=== PATIENT | male | born 1955 | race Caucasian/White ===

== ENCOUNTER 2023-03-27 11:54 | Emergency (ER) | payer SELFPAY ==
[2023-03-27 12:10] VITALS: BP 149/70; PULSE 98; RESP 14; TEMP 36.7; O2SAT 97; BMI 33.0
--- NOTE | 2023-03-27 12:30 | ED.SKABFB ---
HPI - Skin/Abscess/Foreign Bdy General Chief complaint: Skin/Abscess/Foreign Body Stated complaint: bitten by dear ticks Time Seen by Provider: 03/27/23 12:07 Source: patient Mode of arrival: Ambulatory Limitations: no limitations History of Present Illness HPI narrative: Patient is a 68-year-old male who is here for evaluation of a rash that started on his lower back and then move to his upper back in his now on his arms and his upper chest. He states that he did see a tick on him a couple days ago however the rash has been there for the past several days. No fevers. No recent travel. No recent antibiotics. It is forming blisters/pustules. Related Data Previous Rx's Medication Instructions Recorded doxycycline hyclate 100 mg tablet 100 mg PO BID 10 days #20 tabs 03/27/23 Review of Systems Constitutional Constitutional: Reports system reviewed and no additional complaints, except as documented Integumentary/Breasts Skin/Breast: Reports system reviewed and no additional complaints, except as documented Patient History Social History Smoking Status: Former smoker Smoking Status: Former smoker alcohol intake frequency: 0-2 drinks per day Substance Use Type: does not use Exam Initial Vital Signs Initial Vital Signs: Vital Signs Temperature 98.0 F 03/27/23 12:10 Pulse Rate 98 H 03/27/23 12:10 Respiratory Rate 14 03/27/23 12:10 Blood Pressure 149/70 H 03/27/23 12:10 Pulse Oximetry 97 03/27/23 12:10 Oxygen Delivery Method Room Air 03/27/23 12:10 HENNE Head: normal to inspection and normocephalic Skin Other: Patient does have an extensive rash that is in patches located on his lower back and upper back and then also in his arms and chest. Some excoriation. No active bleeding. Very small vesicles noted. No pustules. Course Orders Ordered: ED Orders 03/27/23 12:29 Wound Culture and Gram Stain Stat Wound Culture and Gram Stain Stat Vital Signs Vital signs: Vital Signs - 8 hr 03/27/23 12:10 Temperature 98.0 F Pulse Rate 98 H Respiratory Rate 14 Blood Pressure 149/70 H Pulse Oximetry 97 Oxygen Delivery Method Room Air MDM - Skin/Abscess/Foreign Bdy MDM Narrative Medical decision making narrative: Patient does have a fairly extensive rash on his upper body. It is not consistent with [place] mountain spotted fever or Lyme disease. No tics noted on his skin today. Cultures were obtained. Will start him on doxycycline based on the extent of the rash. He was informed that he needed to contact his primary doctor for follow-up. He expressed understanding and agreement. Discharge Plan Departure Patient Disposition: Home Clinical Impression: Rash Activity Restrictions/Additional Instructions: I recommend that you take the antibiotics as directed. We did culture to areas on your body today. We will contact you if we need to change antibiotics based on this. You are going to need follow-up with your primary doctor and potentially [employer] consultant. Return to the emergency department for new symptoms. Prescriptions: New doxycycline hyclate 100 mg tablet 100 mg PO BID 10 Days Qty: 20 0RF Referrals: Miscellaneous,MD Jabier [Primary Care Provider] - Stand Alone Forms: Patient Portal/API
[2023-03-27 12:43] VITALS: BP 134/67; PULSE 86; RESP 14; O2SAT 97
== END 2023-03-27 12:45 | disposition home or self-care (01) ==
PROVIDERS: Emergency Provider Emergency Medicine
DX: R21 Rash and other nonspecific skin eruption (principal)
CPT/HCPCS: 87070; 87075; 87077; 87147; 87186; 87205; 99281; 99282

== ENCOUNTER 2023-04-08 11:15 | Emergency (ER) | payer SELFPAY ==
[2023-04-08 12:18] VITALS: BP 148/74; PULSE 79; RESP 20; TEMP 36.6; O2SAT 98; BMI 33.0
--- NOTE | 2023-04-08 13:23 | PC.NURSE ---
pt has a rash over body. scratch zambrano. said he put a vacuum to it and sucked them out.
--- NOTE | 2023-04-08 15:06 | ED.PSYCH ---
HPI - Psych <Jose De Jesus Chaney PA-C - Last Filed: 04/08/23 15:14> General Chief Complaint: Psychiatric Symptoms Stated Complaint: deer tick infestation Time Seen by Provider: 04/08/23 13:00 Source: patient Mode of arrival: Ambulatory History of Present Illness HPI Narrative: 68-year-old male presents to the ED for a rash on his torso and arms. Patient was seen in the ED for the same complaint on 03/27/2023, culture obtained and prescribed doxycycline. Culture is positive for Streptococcus G. patient states that his rash improved somewhat when he started taking the antibiotics, however has not completely resolved. Patient also believes that he has some parasites under the skin that are bothering there way across his body and causing the rash. Patient brings a small tub of what appears to be skin and debris in some water and insists that they are parasites and tics. Patient states that he has obtained these organisms by using a small vac to vacuum it out of his skin. Patient is requesting a new antibiotic and an anti parasiteic medication. Patient denies fever, chills, nausea, vomiting. Patient denies any drug use. Unclear if there is a mental health diagnosis. Patient does not have a PCP. Related Data Previous Rx's Medication Instructions Recorded cephalexin 500 mg tablet 500 mg PO QID 7 days #28 tabs 04/08/23 permethrin 5 % topical cream 1 applic topical Q14D 2 doses #60 04/08/23 grams Allergies Allergy/AdvReac Type Severity Reaction Status Date / Time No Known Drug Allergies Allergy Verified 04/08/23 12:27 Review of Systems <Jose De Jesus Chaney PA-C - Last Filed: 04/08/23 15:14> Constitutional Constitutional: Denies chills, Denies fatigue, Denies fever(s), Denies frequent falls, Denies lethargy and Denies weakness Eyes Eyes: Denies change in vision, Denies eye discharge, Denies irritation and Denies loss of vision ENT Ears, Nose, Mouth, and Throat: Denies change in voice, Denies dizziness, Denies neck pain, Denies sore throat and Denies throat swelling Cardiovascular Cardiovascular: Denies chest pain, Denies irregular heart rhythm, Denies lightheadedness, Denies palpitations, Denies dyspnea, Denies dyspnea on exertion and Denies orthopnea Respiratory Respiratory: Denies cough, Denies dyspnea, Denies dyspnea on exertion and Denies wheezing Gastrointestinal Gastrointestinal: Denies abdominal pain, Denies change in bowel habits, Denies diarrhea, Denies nausea and Denies vomiting Musculoskeletal Musculoskeletal: Denies neck pain and Denies numbness Integumentary/Breasts Skin/Breast: Denies pruritus, Denies erythema, Reports rash and Denies wounds Neurologic Neurologic: Denies behavioral changes, Denies confusion, Denies dizziness, Denies frequent falls, Denies loss of vision, Denies numbness and Denies weakness Psychiatric Psychiatric: Denies anxiety, Denies behavioral changes, Denies confusion, Denies depression, Denies homicidal ideation and Denies suicidal ideation Endocrine Endocrine: Denies fatigue, Denies flushing and Denies palpitations Hematologic/Lymphatic Hematologic/Lymphatic: Denies easy bruising Allergic/Immunologic Allergic/Immunologic: Denies urticaria, Denies throat swelling and Denies wheezing Patient History <Jose De Jesus Chaney PA-C - Last Filed: 04/08/23 15:14> Social History Smoking Status: Former smoker Smoking Status: Former smoker alcohol intake frequency: 0-2 drinks per day Substance Use Type: does not use Exam <Jose De Jesus Chaney PA-C - Last Filed: 04/08/23 15:14> Narrative Exam Narrative: Const General:?cooperative, healthy appearing and comfortable [facility] Head:?normal to inspection Ears:?hearing grossly normal bilaterally Nose:?external nose normal Face and sinus:?normal facial exam and sinuses nontender Mouth:?oral mucosae normal Throat:?posterior oropharynx normal Eyes General:?appearance normal, both eyes and all related structures Neck Neck:?normal visual inspection and no lymphadenopathy noted Resp Effort & Inspection:?normal respiratory effort Auscultation:?clear to auscultation bilaterally Cardio Rate:?regular rate Rhythm:?regular rhythm Integumentary Diffuse, erythematous, dry, excoriated rash with scabbing on torso and arms. Neuro General:?patient alert, patient awake and patient oriented x3 Initial Vital Signs Initial Vital Signs: Vital Signs Temperature 97.9 F 04/08/23 12:18 Pulse Rate 79 04/08/23 12:18 Respiratory Rate 20 04/08/23 12:18 Blood Pressure 148/74 H 04/08/23 12:18 Pulse Oximetry 98 02/13/24 12:18 Oxygen Delivery Method Room Air 04/08/23 12:18 <Leodan Lee MD - Last Filed: 04/08/23 19:32> Initial Vital Signs Initial Vital Signs: Vital Signs Temperature 97.9 F 04/08/23 12:18 Pulse Rate 79 04/08/23 12:18 Respiratory Rate 20 04/08/23 12:18 Blood Pressure 148/74 H 04/08/23 12:18 Pulse Oximetry 98 04/08/23 12:18 Oxygen Delivery Method Room Air 04/08/23 12:18 Course <Jose De Jesus Chaney PA-C - Last Filed: 04/08/23 15:14> Vital Signs Vital signs: Vital Signs - 8 hr 04/08/23 12:18 Temperature 97.9 F Pulse Rate 79 Respiratory Rate 20 Blood Pressure 148/74 H Pulse Oximetry 98 Oxygen Delivery Method Room Air <Leodan Lee MD - Last Filed: 04/08/23 19:32> Vital Signs Vital signs: Vital Signs - 8 hr 04/08/23 12:18 Temperature 97.9 F Pulse Rate 79 Respiratory Rate 20 Blood Pressure 148/74 H Pulse Oximetry 98 Oxygen Delivery Method Room Air MDM - Psych <Jose De Jesus Chaney PA-C - Last Filed: 04/08/23 15:14> MDM Narrative Medical decision making narrative: 68-year-old male presents to the ED for a rash on his torso and arms. Patient's rash still appears to be erythematous, dry and excoriated. Will treat with cephalexin. Will also trial permethrin. Patient agrees not to use the vacuum. ED return precautions discussed with patient. Patient verbalized understanding. Medical records reviewed: Yes Discharge Plan Departure Patient Disposition: Home Clinical Impression: Rash Instructions: DI for Rash Activity Restrictions/Additional Instructions: You were evaluated in the ED today for a skin rash. Your culture results from your last ED visit shows Streptococcus G, for which you are being prescribed a new antibiotic cephalexin. Were also being prescribed permethrin. Please take those as prescribed. Return to the ED if you have worsening symptoms, chest pain, shortness of breath. Prescriptions: New cephalexin 500 mg tablet 500 mg PO QID 7 Days Qty: 28 0RF permethrin 5 % cream 1 applic topical Q14D Qty: 60 0RF Rx Instructions: apply second treatment 14 days after first treatment if live lice remain Referrals: Miscellaneous,Doctor, [Primary Care Provider] - Stand Alone Forms: Patient Portal/API ED Sign-out <Leodan Lee MD - Last Filed: 04/08/23 19:32> Cosign ED Attending Cosignature Attestation: I was immediately available in the department for consultation. Documentation has been reviewed. I agree with assessment and plan.
== END 2023-04-08 13:36 | disposition home or self-care (01) ==
PROVIDERS: Emergency Provider Student in an Organized Health Care Education/Training Program
DX: R21 Rash and other nonspecific skin eruption (principal)
CPT/HCPCS: 99283